=== PATIENT | male | born 1965 | race Caucasian/White ===

== ENCOUNTER 2022-12-28 11:29 | Emergency (ER) | payer SELFPAY ==
[2022-12-28 11:37] VITALS: BP 124/74; PULSE 111; RESP 16; TEMP 36.7; O2SAT 100
--- NOTE | 2022-12-28 12:59 | PC.NURSE ---
pt left before seeing a provider. charge nurse educated pt about symptoms warranting a return and all questions were answered.
--- NOTE | 2022-12-28 13:00 | PC.NURSE ---
Pt stopped this RN to ask how long he has to wait for a packing change - Informed pt that I cannot give out a time frame of a provider to evaluate him. Pt again complains that it only takes a few minutes to change my packing . Explained that the ER is extremely busy with multi[le pt's that just arrived by ambulance that are semi-conscious, and that those emergencies take precedence. Pt states he cannot wait anymore. He lives in [place] and states the 'bigger hospitals' work much faster. pt left the department with a steady gait.
== END 2022-12-28 13:00 | disposition left against medical advice (07) ==
LOC: ANHED 13:23
DX: Z48.01 Encounter for change or removal of surgical wound dressing (principal)
CPT/HCPCS: 99199